=== PATIENT | male | born 1985 | race Caucasian/White ===

== ENCOUNTER 2017-05-26 17:37 | Inpatient (IN) | payer OTHER ==
[~2017-05-26] VITALS: Ht 182.9 cm; Wt 77.1 kg
[2017-05-26 17:42] VITALS: BP 111/63
[2017-05-26 20:09] LABS: HEMATOCRIT 42.4 % (42.0-52.0); HEMOGLOBIN 14.9 gm/dL (14.0-18.0); MCH 31.7 pg (26.0-34.0); MCHC 35.2 g/dL (28.0-37.0); MCV 90.2 fL (80.0-100.0); PLATELET COUNT 178 thou/uL (150-400); RDW 12.5 % (10.5-14.5)
[2017-05-26 20:10] LABS: MANUAL DIFF YES
[2017-05-26 20:13] LABS: CALCIUM 7.6 mg/dL (8.5-10.1); POTASSIUM 3.2 mmol/L (3.5-5.1)
[2017-05-26 20:18] LABS: ALBUMIN 3.4 g/dL (3.4-5.0); TOTAL BILIRUBIN 0.6 mg/dL (<0.1-1.0); TOTAL PROTEIN 6.3 g/dL (6.4-8.2)
[2017-05-26 20:36] LABS: ABSOLUTE NEUTROPHILS 10.2 thou/uL (1.4-8.2); TOTAL CELL COUNT 100
[2017-05-26 21:33] VITALS: BP 120/65
[2017-05-27 04:23] VITALS: BP 121/61
[2017-05-27 05:01] LABS: URINE BILIRUBIN NEGATIVE (Negative); URINE BLOOD TRACE (Negative); URINE COLOR YELLOW; URINE GLUCOSE-RANDOM* NEGATIVE (Negative); URINE KETONES 1+ (Negative); URINE LEUKOCYTES-REFLEX NEGATIVE (Negative); URINE PROTEIN (DIPSTICK) NEGATIVE (Negative); URINE UROBILINOGEN 0.2 E.U./dl (0.2-1.0)
[2017-05-27 05:12] LABS: AMP/METHAMP POSITIVE (Negative); BARBITURATES Negative (Negative); BENZODIAZEPINES Negative (Negative); COCAINE Negative (Negative); METHADONE Negative (Negative); OPIATES POSITIVE (Negative); PCP Negative (Negative); THC Negative (Negative)
[2017-05-27 05:29] LABS: HEMATOCRIT 42.5 % (42.0-52.0); HEMOGLOBIN 14.5 gm/dL (14.0-18.0); MCH 31.4 pg (26.0-34.0); MCHC 34.1 g/dL (28.0-37.0); RBC 4.62 mil/uL (4.50-6.00); RDW 13.1 % (10.5-14.5); WBC 6.5 thou/uL (4.0-11.0)
[2017-05-27 05:36] LABS: CALCIUM 7.9 mg/dL (8.5-10.1); CREATININE 0.8 mg/dL (0.7-1.3); POTASSIUM 3.4 mmol/L (3.5-5.1)
[2017-05-27 08:02] VITALS: BP 107/67
[2017-05-27 15:45] VITALS: BP 110/74
[2017-05-27 20:00] VITALS: BP 122/80
[2017-05-28 04:00] VITALS: BP 125/81
[2017-05-28 08:00] VITALS: BP 128/88
[2017-05-28] MEDS ORDERED: VITAMIN B-1100 M2 PO (08:18)
[2017-05-28] MEDS ORDERED: PERCOCET 10-321 EACH PO (08:19)
[2017-05-28] MEDS ORDERED: AUGMENTIN 875875 MG PO (08:20)
[2017-05-28 08:58] VITALS: BP 125/81
[2017-05-28 10:06] VITALS: BP 125/81
== END 2017-05-28 10:41 | DRG 605 ==
LOC: ER 17:37 → 3N 20:43 → EROBS 20:43 → 3N 20:43 → EDBD 05-28 10:41 → 3N 05-28 10:41
PROVIDERS: Emergency Medicine; Nurse Practitioner Acute Care
PROC: 0HQKXZZ Repair Right Lower Leg Skin, External Approach (ICD-10-PCS; principal; 2017-05-26)
DX: S71.151A Open bite, right thigh, initial encounter (principal); F17.210 Nicotine dependence, cigarettes, uncomplicated; F12.10 Cannabis abuse, uncomplicated; F10.10 Alcohol abuse, uncomplicated; F15.10 Other stimulant abuse, uncomplicated; Y90.0 Blood alcohol level of less than 20 mg/100 ml; W54.0XXA Bitten by dog, initial encounter; Y93.89 Activity, other specified; Y92.89 Other specified places as the place of occurrence of the external cause; Y99.8 Other external cause status; Z59.0 Homelessness; Z71.6 Tobacco abuse counseling; Z71.51 Drug abuse counseling and surveillance of drug abuser; Z71.41 Alcohol abuse counseling and surveillance of alcoholic
CPT/HCPCS: 10094